=== PATIENT | female | born 1930 | race African-American/Black ===

== ENCOUNTER 2017-03-03 13:59 | Emergency (ER) | payer MEDICARE, OTHER ==
[~2017-03-03] VITALS: Ht 162.6 cm; Wt 69.5 kg
[2017-03-03 14:00] VITALS: BP 226/107; PULSE 88; RESP 18; TEMP 98.8; O2SAT 100
[2017-03-03 14:23] VITALS: BP 214/99; PULSE 83; RESP 16; O2SAT 100
[2017-03-03] MEDS ORDERED: LOSA50TA PO (14:48)
[2017-03-03] MEDS ORDERED: ATEN25TA PO (14:48)
[2017-03-03] MEDS ORDERED: ATOR10TA15 PO (14:48)
[2017-03-03] MEDS ORDERED: cloNIDine HCL 0.1 MG TAB PO ONE (15:00)
[2017-03-03 15:05] LABS: AUTOMATED NEUTROPHIL # 3.5 TH/MM3 (1.8-7.7); BASOPHIL % 0.7 % (0.0-2.0); EOSINOPHIL # 0.1 TH/MM3 (0-0.4); EOSINOPHIL % 1.5 % (0.0-4.0); HEMATOCRIT 40.4 % (35.0-46.0); HEMO FLAGS DIFF FINAL; LYMPH % 29.3 % (9.0-44.0); LYMPHOCYTE # 1.6 TH/MM3 (1.0-4.8); MEAN CELL VOLUME 89.8 FL (80.0-100.0); MEAN CORPUSCULAR HGB CONC 33.4 % (32.0-36.0); MONO % 6.4 % (0.0-8.0); NEUT % 62.1 % (16.0-70.0); PLATELET COUNT 267 TH/MM3 (150-450); RED CELL DISTRIBUTION WIDTH 13.4 % (11.6-17.2); WHITE BLOOD COUNT 5.6 TH/MM3 (4.0-11.0)
--- NOTE | 2017-03-03 15:07 | PD ---
HPI Chief Complaint: Abnormal Results Time Seen by Provider: 14:17 Travel History International Travel<30 days: No Contact w/Intl Traveler<30days: No Traveled to known affect area: No History of Present Illness HPI Thin 87 year-old woman who presents to the emergency department because she is "was not feeling quite right". Lasix clarify she some positions and feeling herself. She does not describe any specific somatic complaints. No headache, no chest pain, no trouble breathing, no shortness of breath, no change in her hearing or vision. States this feels bad when her blood pressure gets up and her blood pressure been more elevated. She is on atenolol 25 mg daily, and recently added losartan. She otherwise has been feeling generally well. History Past Medical History Narrative Medical Hypertension hyperlipidemia Social History Alcohol Use: No Tobacco Use: No Allergies-Medications (Allergen,Severity, Reaction): Coded Allergies: No Known Allergies (Unverified , 03/03/17) Reported Meds & Prescriptions Reported Meds & Active Scripts Active Reported Atorvastatin (Atorvastatin Calcium) 10 Mg Tab 10 Mg PO HS Atenolol 25 Mg Tab 25 Mg PO BID Losartan (Losartan Potassium) 50 Mg Tab 50 Mg PO DAILY Review of Systems Except as stated in HPI: all other systems reviewed are Neg Physical Exam Narrative GENERAL: Well-appearing 87 year-old woman, no acute distress. SKIN: Focused skin assessment warm/dry. HEAD: Atraumatic. Normocephalic. EYES: Pupils equal and round. No scleral icterus. No injection or drainage. ENT: No nasal bleeding or discharge. Mucous membranes pink and moist. NECK: Trachea midline. No JVD. CARDIOVASCULAR: Regular rate and rhythm. Flank systolic murmur radiating to the carotids. RESPIRATORY: No accessory muscle use. Clear to auscultation. Breath sounds equal bilaterally. GASTROINTESTINAL: Abdomen soft, non-tender, nondistended. Hepatic and splenic margins not palpable. MUSCULOSKELETAL: No obvious deformities. No edema. NEUROLOGICAL: Awake and alert. No obvious cranial nerve deficits. Motor grossly within normal limits. Normal speech. Data Data Last Documented VS Vital Signs Date Time Temp Pulse Resp B/P Pulse Ox O2 Delivery O2 Flow Rate FiO2 03/03/17 14:23 83 16 214/99 100 Room Air 03/03/17 14:00 98.8 Orders Complete Blood Count With Diff (5/24/17 14:17) Comprehensive Metabolic Panel (03/03/17 14:17) Troponin I (03/03/17 14:17) Clonidine (Catapres) (03/03/17 15:00) Labs Laboratory Tests Test 03/03/17 14:33 White Blood Count 5.6 TH/MM3 Red Blood Count 4.50 MIL/MM3 Hemoglobin 13.5 GM/DL Hematocrit 40.4 % Mean Corpuscular Volume 89.8 FL Mean Corpuscular Hemoglobin 30.0 PG Mean Corpuscular Hemoglobin 33.4 % Concent Red Cell Distribution Width 13.4 % Platelet Count 267 TH/MM3 Mean Platelet Volume 7.7 FL Neutrophils (%) (Auto) 62.1 % Lymphocytes (%) (Auto) 29.3 % Monocytes (%) (Auto) 6.4 % Eosinophils (%) (Auto) 1.5 % Basophils (%) (Auto) 0.7 % Neutrophils # (Auto) 3.5 TH/MM3 Lymphocytes # (Auto) 1.6 TH/MM3 Monocytes # (Auto) 0.4 TH/MM3 Eosinophils # (Auto) 0.1 TH/MM3 Basophils # (Auto) 0.0 TH/MM3 CBC Comment DIFF FINAL Differential Comment Sodium Level 144 MEQ/L Potassium Level 3.5 MEQ/L Chloride Level 106 MEQ/L Carbon Dioxide Level 29.8 MEQ/L Anion Gap 8 MEQ/L Blood Urea Nitrogen 12 MG/DL Creatinine 0.97 MG/DL Estimat Glomerular Filtration 66 ML/MIN Rate Random Glucose 104 MG/DL Calcium Level 9.3 MG/DL Total Bilirubin 0.6 MG/DL Aspartate Amino Transf 24 U/L (AST/SGOT) Alanine Aminotransferase 27 U/L (ALT/SGPT) Alkaline Phosphatase 58 U/L Troponin I LESS THAN 0.02 NG/ML Total Protein 7.7 GM/DL Albumin 3.7 GM/DL [facility] Medical Decision Making Medical Screen Exam Complete: Yes Emergency Medical Condition: Yes Interpretation(s) LABS: CBC is unremarkable. CMP is unremarkable. Troponins negative. Differential Diagnosis Accelerated hypertension, hypertensive urgency, renal failure, other Narrative Course Medical decision-making 87 year-old woman, here not feeling well, no specific somatic complaints, blood pressure little bit elevated. We'll check screening labs, just atenolol dose of 40, outpatient follow-up. Diagnosis Primary Impression: High blood pressure Admitting Information Admitting Physician Requests: Admit Additional Instructions: Increase atenolol to 50 mg daily. Follow-up with her primary doctor in 2-3 days. Med/Other Pt SpecificInfo: Prescription(s) given Scripts Atenolol 50 Mg Tab50 Mg PO BID #60 TAB Ref 0 Prov:Kishore Harrell MD 03/03/17 Disposition: 01 DISCHARGE HOME Condition: Stable Kishore Harrell MD March 03, 2017 15:07
[2017-03-03 15:17] LABS: ANION GAP 8 MEQ/L (5-15); AST (GOT) 24 U/L (15-37); BICARBONATE 29.8 MEQ/L (21.0-32.0); BLOOD UREA NITROGEN 12 MG/DL (7-18); CHLORIDE 106 MEQ/L (98-107); GLOMERULAR FILTRATION RATE 66 ML/MIN (>89); POTASSIUM 3.5 MEQ/L (3.5-5.1); SODIUM (NA) 144 MEQ/L (136-145)
[2017-03-03 15:21] LABS: ALKALINE PHOSPHATASE 58 U/L (45-117); ALT (GPT) 27 U/L (10-53); TOTAL BILIRUBIN ADULT 0.6 MG/DL (0.2-1.0)
[2017-03-03] MEDS ORDERED: ATEN50TA PO (15:32)
== END 2017-03-03 16:04 | disposition home or self-care (01) ==
LOC: NEPD 13:59
DX: I10 Essential (primary) hypertension (principal); E78.5 Hyperlipidemia, unspecified
CPT/HCPCS: 80053; 84484; 85025; 99283